=== PATIENT | female | born 1980 | race Caucasian/White ===

== ENCOUNTER 2016-07-05 01:01 | Inpatient (IN) | payer MEDICARE, OTHER ==
--- NOTE | ~2016-07-05 | A ---
[facility] Nutrition Therapy DATE: 07/06/16 Patient: AMARI S MASOOD Physician: MORCAR Address: [address] [facility] [facility] Room/Bed: [address], Zip: [place] [address] Admit Date: 07/05/16 Date of : [birth year] Height: 5 0 Weight: 144 65.5 NUTRITIONAL ASSESSMENT: REASON: DKA, NPO STATUS IN ICU 36 yo female admitted for n/v, drug screen, FL PMH: DM, HLD Anthropometrics: Ht: 60" Wt: 65 kg BMI: 28 Labs: Na+ 134 Gluc 157 BUN 8 Ca++ 7.6 Alb 2.8 Phos 5.3 HgbA1C 10.7 Accuchecks from 07/05 (none available today): 103-323 Meds: NaCl, novolog, KCl, lipitor, levemir, lopressor, protonix, D50% I/O & Bowel function: 804/600, last BM unknown Skin Integrity: Small scabs- scattered Scars BL arms/ abdomen/ left thigh Edema: none noted Assessment: Chart reviewed, events noted. Pt admitted for n/v, DKA, positive for FL. Pt has a h/o DM and HLD, and has had DM diet education from [facility] R[facility] in the past (August [address] notes). Insulin drip has been turned off, and the pt is NPO for cath procedure. Pt has orders to advance to a heart healthy/ consistent carbohydrate diet after procedure. Pt has elevated Phos ATT, and had elevated K+ upon admission. Pt is very lethargic today per RN report, and not appropriate for diet education. RD will follow up for diet education needs and to assess PO intake once diet advances. Dx: Impaired glycemic control RT PMH, possibly poorly controlled DM AEB accuchecks 103-323. Intervention: 1. NPO 2. Advance to HH/CC diet once medically feasible Monitoring, Evaluation and Goals: 1. Oral intake; tolerate >50-75% of meals and supplements 2. Labs; WNL 3. Weight; prevent unintentional weight loss Recommendations: [facility] Nutrition Therapy DATE: 07/06/16 Patient: AMARI CORREIA Physician: MORCAR Address: [address] [facility] Room/Bed: [facility] [facility], Zip: [place] [address] Admit Date: 07/05/16 Date of : [birth year] Height: 5 0 Weight: 144 65.5 1. Once medically feasible, advance the pt to a heart healthy/ consistent carbohydrate diet as tolerated. 2. HH/CD diet education once appropriate. RD will follow up. Pt is at mild-moderate nutritional risk. Respectfully, SAWYER QUINN RD, LD Food and Nutritional Services [facility] cc: client file
--- NOTE | ~2016-07-05 | EKG ---
PATIENT: AMARI CORREIA UNIT #: [id number] Ventricular Rate: 117 BPM Atrial Rate: 117 BPM P-R Interval: 116 ms QRS Duration: 84 ms Q-T Interval: 342 ms QTC Calculation(Bezet): 477 ms P [place]: 71 degrees Calculated R [place]: 79 degrees Calculated T [place]: 44 degrees Diagnosis Line: Sinus tachycardia Diagnosis Line: Otherwise normal ECG Diagnosis Line: When compared with ECG of 05-JUL-2016 03:30, Diagnosis Line: (unconfirmed) Diagnosis Line: ST no longer depressed in Inferior leads Diagnosis Line: Confirmed by HONEY LAINEZ MD ([id number]) on Diagnosis Line: 07/05/2016 12:10:31 PM INTERPRETING MD: JOSIAH
--- NOTE | ~2016-07-05 | HP ---
Unit #: [id number] #: [id number] Patient: AMARI CORREIA [id number] [address] [place], [place] [address] [id number] E MR#: [id number] NAME: AMARI CORREIA ROOM: Age: 36 Sex: F Admission Date: 07/05/2016 : 1980 Attending Physician: [facility] Er Primary Care Physician: Jose Carlos Juarez M.D. HISTORY AND PHYSICAL CHIEF COMPLAINT Feeling bad. HISTORY OF PRESENT ILLNESS The patient is a 36-year-old female with diabetes who presents to [facility] emergency department feeling bad. Per the patient and family, she began feeling ill with a "stomach virus" about two days ago. She has been progressively more ill since that time. She has extreme nausea and vomiting, fatigue, weakness and shortness of breath. No alleviating factors at this time. PAST MEDICAL HISTORY 1. Diabetes. 2. Hyperlipidemia. PAST SURGICAL HISTORY None. SOCIAL HISTORY The patient smokes. Denies alcohol and illicit drug use. FAMILY HISTORY Diabetes. ALLERGIES Dilantin. HOME MEDICATIONS 1. Nystatin. 2. Metformin. 3. Januvia. 4. Lantus. 5. NovoLog. REVIEW OF SYSTEMS Ten point review of systems obtained and negative except as per HPI. PHYSICAL EXAMINATION VITAL SIGNS: Temperature 98.2, pulse 116, blood pressure 121/60. GENERAL: 36-year-old female in no acute distress, who appears stated age. HEENT: Pupils equally round. Extraocular movements intact. Mucous membranes dry. NECK: Supple. No JVD, no lymphadenopathy. CARDIAC: Regular rate and rhythm. No murmurs, gallops or rubs. Unit #: [id number] #: [id number] Patient: AMARI CORREIA LUNGS: Clear to auscultation bilaterally. ABDOMEN: Diffusely tender to palpation. Soft. No hepatosplenomegaly. EXTREMITIES: No clubbing, cyanosis or edema. They are warm and dry. PSYCH: Alert and oriented x3. Affect is appropriate. NEUROLOGICAL: Cranial nerves II-XII intact grossly. The patient moves all extremities equally and with purpose. SKIN: No rashes, bruises or ulcers. MUSCULOSKELETAL: No muscle or joint pain, no muscle or joint swelling. DIAGNOSTIC STUDIES LABORATORY: Glucose 535, creatinine 1.5, sodium 130, potassium 5.3, bicarb 6, white count 15. IMAGING: Chest x-ray is negative. ASSESSMENT AND PLAN 1. Diabetic ketoacidosis: The patient's bicarb is 6 with a gap of 28. The patient was started on insulin drip. 2. Hyperkalemia: This is secondary to patient's acidosis and the patient is likely potassium depleted and will require potassium replacement once acidosis has resolved. 3. Prophylaxis: The patient was started on Lovenox. Dictated by Obed Woods M.D. JOEY/remedios TD: 07/05/2016 06:41 JOB #: [id number] HISTORY AND PHYSICAL X Obed Woods MD X HISTORY AND PHYSICAL
--- NOTE | ~2016-07-05 | EKG ---
PATIENT: AMARI CORREIA UNIT #: [id number] Ventricular Rate: 88 BPM Atrial Rate: 88 BPM P-R Interval: 120 ms QRS Duration: 80 ms Q-T Interval: 402 ms QTC Calculation(Bezet): 486 ms P [place]: 63 degrees Calculated R [place]: 73 degrees Calculated T [place]: 15 degrees Diagnosis Line: Normal sinus rhythm Diagnosis Line: Prolonged QT Diagnosis Line: Abnormal ECG Diagnosis Line: When compared with ECG of 05-JUL-2016 16:45, Diagnosis Line: (unconfirmed) Diagnosis Line: No significant change was found Diagnosis Line: Confirmed by KAILASH CORTEZ MD ([id number]) on 07/06/2016 Diagnosis Line: 7:38:10 PM INTERPRETING MD: DANA CORONA
--- NOTE | ~2016-07-05 | EKG ---
PATIENT: AMARI CORREIA UNIT #: [id number] Ventricular Rate: 90 BPM Atrial Rate: 90 BPM P-R Interval: 118 ms QRS Duration: 80 ms Q-T Interval: 382 ms QTC Calculation(Bezet): 467 ms P [place]: 49 degrees Calculated R [place]: 69 degrees Calculated T [place]: -7 degrees Diagnosis Line: Normal sinus rhythm Diagnosis Line: Abnormal QRS-T angle, consider primary T wave Diagnosis Line: abnormality Diagnosis Line: Abnormal ECG Diagnosis Line: When compared with ECG of 06-JUL-2016 06:00, Diagnosis Line: (unconfirmed) Diagnosis Line: Nonspecific T wave abnormality now evident in Diagnosis Line: Lateral leads Diagnosis Line: Confirmed by KAILASH CORTEZ MD ([id number]) on 07/06/2016 Diagnosis Line: 7:42:01 PM INTERPRETING MD: DANA CORONA
--- NOTE | ~2016-07-05 | DS ---
Unit #: [id number] #: [id number] Patient: AMARI CORREIA [id number] [address] [place], [place] [address] [id number] I MR#: [id number] NAME: AMARI CORREIA. ROOM: 568 Age: 36 Sex: F Admission Date: 07/05/2016 : 1980 Discharge Date: 07/07/2016 Attending Physician: Gaurang De La Cruz M.D. Primary Care Physician: Jose Carlos Juarez M.D. DISCHARGE SUMMARY ADMITTING DIAGNOSES 1. Diabetic ketoacidosis. 2. Non-ST elevation myocardial infarction. CONSULTANTS Dr. Hanks/Dr. Mel Trevizo. Dr. Marion. PROCEDURES PERFORMED Cardiac catheterization, status post stent placement. She was noted to have left ventricular inferior basal hypokinesia. Left main normal. LAD 50% mid. Left circumflex 95%. Proximal RCA 100%. She had a [employer] stent of the proximal left circumflex. HISTORY OF PRESENT ILLNESS The patient is a 36-year-old lady with a past medical history of type 1 diabetes, noncompliant. She presented to the emergency room with a chief complaint of nausea and vomiting and not feeling well. Initially in the emergency room she was noted to be in diabetic ketoacidosis and she was started on DKA protocol. On further workup her troponin was elevated high, up to 8. For further workup cardiology was consulted. She had a cardiac catheterization done and subsequently she had a stent placed. She is doing clinically better after the cardiac catheterization an stent. Dr. Marion was consulted for the ICU management. She is clinically doing better. She will be discharged home. I spoke with the patient at length and explained to her that she is to consider quitting smoking and take her medications regularly. She is to follow up with cardiology as an outpatient for further care. PHYSICAL EXAMINATION VITALS: On the day of discharge her temperature is 97.8, pulse rate 88, respiratory rate 18, blood pressure 119/67. GENERAL: The patient is alert and oriented times three, lying in the bed in no acute distress. HEENT: Normocephalic, atraumatic. No icterus. Pupils equally round and reactive to light and accommodation. Extraocular muscles intact. NECK: Supple. No jugular venous distension. HEART: S1 and S2. Regular rate and rhythm. CHEST: Bilateral equal air entry. Clear to auscultation. ABDOMEN: Soft and nontender. EXTREMITIES: No edema. Normal peripheral pulses. DISCHARGE MEDICATIONS 1. Zithromax 250 mg p.o. daily for 3 more days. Unit #: [id number] #: [id number] Patient: AMARI CORREIA 2. Nitroglycerin 0.4 mg sublingual q. 5 minutes times 3 p.r.n. chest. 3. Januvia 100 mg p.o. daily. 4. Metoprolol 25 mg p.o. b.i.d. 5. Lipitor 80 mg daily. 6. Lisinopril 2.5 mg p.o. daily. 7. Insulin Aspart 15 units subcutaneous t.i.d. before meals. 8. Aspirin 81 mg daily. 9. Brilinta 90 mg p.o. b.i.d. 10. Protonix 40 mg daily. 11. Ofloxacin eyedrops b.i.d. FOLLOWUP 1. She is instructed to follow up with cardiology. 2. Follow up with primary care physician in one to two weeks. All the discharge instructions were explained in detail to the patient. 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 Total time spent in her care was 35 minutes. Dictated by.Tamie Lynch TD: 07/07/2016 16:00 JOB #: [id number] DISCHARGE SUMMARY X X DISCHARGE SUMMARY
--- NOTE | ~2016-07-05 | CR72 ---
[facility] A Service of [facility] & [facility] RADIOLOGY TEXT RESULTS PATIENT: AMARI CORREIA LOCATION: [facility] 568- : [birth year] UNIT #: [id number] AGE: [address]: Gaurang De La Cruz MD SEX: F ORDER DR: [id number] [facility] [address] [place], [place] [address] [id number] I MR#: [id number] Acc #: [id number] NAME: AMARI CORREIA : 1980 SEX: F STUDY DATE/TIME: 07/06/2016 2:45 UNIT: [facility] ROOM: [facility] STUDY DESCRIPTION: CR Chest Single View Portable Attending Physician: Gaurang De La Cruz M.D. Ordering Physician: Verenice Marion M.D. Primary Care Physician: Jose Carlos Juarez M.D. MEDICAL IMAGING REPORT This report is preliminary unless electronic signature is present EXAM Portable AP view of the chest COMPARISON July 05, 2016 and August 06, 2014. INDICATION 36-year-old female with nausea, emesis, weakness and dyspnea for 1 day. Admitted with diabetic ketoacidosis. FINDINGS AND IMPRESSION No evidence of pneumothorax, pleural effusion or acute airspace disease. Calcified hilar lymph nodes are noted on the right with calcified granulomas in the right pulmonary apex. There has been interval placement of a right upper extremity PICC with the tip terminating in the right axillary vein. This is malpositioned. Dictated by... Jose Carlos Arteaga M.D. THIS IS AN ELECTRONICALLY VERIFIED REPORT Jose Carlos Arteaga M.D. at 07/08/2016 6:53 AM Ana M TD: 07/06/2016 09:37 JOB #: [id number] MEDICAL IMAGING REPORT COPY
--- NOTE | ~2016-07-05 | EKG ---
PATIENT: AMARI CORREIA UNIT #: [id number] Ventricular Rate: 88 BPM Atrial Rate: 88 BPM P-R Interval: 122 ms QRS Duration: 82 ms Q-T Interval: 384 ms QTC Calculation(Bezet): 464 ms P [place]: 50 degrees Calculated R [place]: 92 degrees Calculated T [place]: -24 degrees Diagnosis Line: Normal sinus rhythm Diagnosis Line: Rightward axis Diagnosis Line: T wave abnormality, consider inferior ischemia Diagnosis Line: Prolonged QT Diagnosis Line: Abnormal ECG Diagnosis Line: When compared with ECG of 06-JUL-2016 17:45, Diagnosis Line: No significant change was found Diagnosis Line: Confirmed by KAILASH CORTEZ MD ([id number]) on 07/09/2016 Diagnosis Line: 5:48:25 PM INTERPRETING MD: DANA CORONA
--- NOTE | ~2016-07-05 | CR72 ---
[facility] A Service of [facility] & [facility] RADIOLOGY TEXT RESULTS PATIENT: AMARI CORREIA LOCATION: [address] : [birth year] UNIT #: [id number] AGE: [address]: Gaurang De La Cruz MD SEX: F ORDER DR: [id number] [facility] [address] [facility] [address] [address] [place], [place] [address] [id number] E MR#: [id number] #: [id number] NAME: AMARI CORREIA : 1980 SEX: F STUDY DATE/TIME: 07/05/2016 0:53 UNIT: [facility] ROOM: STUDY DESCRIPTION: CR Chest Single View Portable Attending Physician: Er Doctor Generic Ordering Physician: Michael Sanford M.D. Primary Care Physician: Jose Carlos Juarez M.D. MEDICAL IMAGING REPORT This report is preliminary unless electronic signature is present EXAM Portable AP view of the chest COMPARISON August 06, 2014, August 03, 2014, July 31, 2014. INDICTIONS 36-year-old female with cough and dyspnea for 2 days. FINDINGS Calcified right hilar lymph nodes are again noted. No evidence of pneumothorax, pleural effusion or acute airspace disease. Cardiomediastinal silhouette is within normal limits. There is a note of calcified clustered granulomas in the right pulmonary apex. IMPRESSION No acute radiographic abnormality. Dictated by... Jose Carlos Arteaga M.D. THIS IS AN ELECTRONICALLY VERIFIED REPORT Jose Carlos Arteaga M.D. at 07/06/2016 8:24 AM Charlene TD: 07/05/2016 07:36 JOB #: [id number] MEDICAL IMAGING REPORT COPY
--- NOTE | ~2016-07-05 | EKG ---
PATIENT: AMARI CORREIA UNIT #: [id number] Ventricular Rate: 124 BPM Atrial Rate: 124 BPM P-R Interval: 134 ms QRS Duration: 100 ms Q-T Interval: 326 ms QTC Calculation(Bezet): 468 ms P [place]: 62 degrees Calculated R [place]: 94 degrees Calculated T [place]: 18 degrees Diagnosis Line: Sinus tachycardia Diagnosis Line: Possible Left atrial enlargement Diagnosis Line: Rightward axis Diagnosis Line: Nonspecific ST abnormality Diagnosis Line: Abnormal ECG Diagnosis Line: When compared with ECG of 06-AUG-2014 18:40, Diagnosis Line: QRS duration has increased Diagnosis Line: ST now depressed in Inferior leads Diagnosis Line: ST now depressed in Anterolateral leads Diagnosis Line: Confirmed by HONEY LAINEZ MD ([id number]) on Diagnosis Line: 07/05/2016 12:01:51 PM INTERPRETING MD: JOSIAH
--- NOTE | ~2016-07-05 | EKG ---
PATIENT: AMARI CORREIA UNIT #: [id number] Ventricular Rate: 84 BPM Atrial Rate: 84 BPM P-R Interval: 118 ms QRS Duration: 76 ms Q-T Interval: 400 ms QTC Calculation(Bezet): 472 ms P [place]: 9 degrees Calculated R [place]: 69 degrees Calculated T [place]: 28 degrees Diagnosis Line: Normal sinus rhythm Diagnosis Line: Normal ECG Diagnosis Line: When compared with ECG of 05-JUL-2016 09:10, Diagnosis Line: No significant change was found Diagnosis Line: Confirmed by KAILASH CORTEZ MD ([id number]) on 07/06/2016 Diagnosis Line: 7:29:55 PM INTERPRETING MD: DANA CORONA
--- NOTE | ~2016-07-05 | CO ---
Unit #: [id number] #: [id number] Patient: AMARI CORREIA [id number] [address] [place], [place] [address] [id number] MR#: [id number] NAME: AMARI CORREIA. ROOM: [facility] Age: 36 Sex: F Admission Date: 07/05/2016 : 1980 Attending Physician: Gaurang De La Cruz M.D. Primary Care Physician: Jose Carlos Juarez M.D. Consultation Date: 07/05/2016 CONSULTATION REPORT REASON FOR CONSULT Elevated troponin. 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 The patient presented to the [place] ED on 07/04/16 at 10 p.m. with complaints of nausea, vomiting, elevated blood sugar that was measured at 440 at home. The patient's boyfriend is at the bedside and provides most of the history as the patient is very sleepy and does not wake long enough to have discussion regarding her admission. Boyfriend states that the patient slept most of the day yesterday and around 8 or 9 p.m. she began vomiting. Therefore, he called EMS to bring the patient to the hospital after he noted her blood sugar to be 460. The patient was given fluid bolus in the ER and was initiated on DKA protocol. At the time of our assessment, the patient's blood pressure is better controlled at 195. The patient had an elevated troponin this morning of 8.61. The patient states that she is having some chest pressure to the middle of her chest and does not radiate anywhere and she has been having some shortness of breath in the last couple of days. She denies any palpitations, syncope or near syncope. The patient has not had any kind of cardiac workup for ischemic heart disease. PAST MEDICAL HISTORY 1. Diabetes. 2. Hyperlipidemia. 3. Tobacco abuse. SURGICAL HISTORY 1. Shunt in the head. 2. MRSA of the left leg. 3. D and C. 4. Tubal. SOCIAL HISTORY The patient smokes a pack per day for the last 20 years. She denies any alcohol abuse or any other drug abuse. FAMILY HISTORY She had a sister that at age 29 from an infection of her heart. REVIEW OF SYSTEMS Unit #: [id number] #: [id number] Patient: AMARI CORREIA See HPI. PHYSICAL EXAMINATION GENERAL: This is a 36-year-old white female who is alert and oriented x3, no apparent distress. VITAL SIGNS: Blood pressure 123/85, respirations 16, pulse was 127, temp is 98.0. HEENT: Pupils are equal, round and reactive. Oral mucosa is moist. NECK: No JVD, no thyromegaly, no lymphadenopathy, no carotid bruits. HEART: S1, S2. No S3 or S4. No clicks, no rubs, no murmurs. LUNGS: Clear. ABDOMEN: Soft. Bowel sounds positive. Nontender, nondistended. EXTREMITIES: No swelling. ALLERGIES Dilantin. HOME MEDICATIONS 1. Cholesterol medicine. 2. Metformin. 3. Januvia. 4. Lantus. 5. NovoLog. None of the doses are listed and the home Med Rec is not available at this time for review. DIAGNOSTIC STUDIES LABORATORY: White count of 15.7, hemoglobin 14.4, hematocrit 45.1, platelets 316, sodium 136, potassium 4.5, chloride 110, CO2 6, BUN 18, creatinine 1.3, glucose 195, phos 5.3, troponin 8.6, CK MB 15.4. CARDIOVASCULAR: EKG shows sinus tachycardia with a rate of 117. IMAGING: Chest x-ray was clear with no signs of pulmonary edema or pneumonia noted. IMPRESSION 1. Diabetic ketoacidosis. 2. Acute non-Q myocardial infarction. 3. Hyperlipidemia. 4. Tobacco abuse. PLAN The patient was started on aspirin, therapeutic Lovenox. Will add a lipid profile and A1c to this morning's lab as well as full dose of Lipitor. Will put parameters on Lopressor that was ordered. Will trend troponins q.6 hours x3. Will check an EKG now as well as start Integrilin drip on the patient. Discussed with patient that she needs to have a cardiac cath; however, patient is reluctant to have one today and she requests to have it done tomorrow. Will check labs in the morning as well as an EKG and a troponin level. Will plan for patient to have cardiac cath tomorrow. Patient is agreeable to proceed and verbalizes understanding of the plan and care. Dictated by... Erin Melchor APRN for Unit #: [id number] #: [id number] Patient: AMARI CORREIA M.D. LA/df TD: 07/06/2016 08:28 JOB #: [id number] CONSULTATION REPORT X X CONSULTATION REPORT
[~2016-07-05 01:01] MED LIST: ANEXSIA 7.5/3251 TA1 PO; BACTRIM DS TABL1 TA1 PO; COMBIVENT U/D3 M2 INH; DAKIN'S MODIF1000 ML EXT; HIGH CHOLESTEROL MED; HUMALOG100 U/M1; HUMALOG100 U/ML; HUMALOG100 U/ML SUBQ; HUMIBID-LA600 MG PO; IBUPROFEN800 MG PO; KEFLEX PO; LANTUS100 U/M1 SUBQ; LANTUS100 U/ML; LANTUS100 UNITS/ SUBQ; LEVAQUIN750 MG PO; LEVEMIR100 UNITS/ SUBQ; MOTRIN400 MG PO; MOTRIN600 M2 PO; NICOTINE TRANSD21 MG EXT; PEPCID AC20 M2 PO; PERCOCET 5-3251 TAB PO; PROZAC PO; RAMIPRIL2.5 M1 PO; SIMVASTATIN20 MG PO; VIBRAMYCIN100 M1 PO; WELLBUTRIN XL150 M1 PO
[2016-07-05 01:56] LABS: BASOPHIL# 0.1 X10e3 (0-0.3); BASOPHIL% 0.3 % (0-2.5); EOSINOPHIL% 0.3 % (0.0-7.0); HEMATOCRIT 45.1 % (35.0-45.0); HEMOGLOBIN 14.2 gm/dL (12.0-16.0); LYMPHOCYTE# 1.7 X10e3 (1.0-3.5); LYMPHOCYTE% 10.7 % (17.0-45.0); MEAN CELL VOLUME 91.2 FL (83-96); MEAN CORPUSCULAR HEMOGLOBIN 28.8 PG (28-34); MEAN CORPUSCULAR HGB CONC 31.5 g/dL (30-36); MEAN PLATELET VOLUME 9.3 FL (6.5-11.5); MONOCYTE% 6.7 % (3.0-12.0); NEUTROPHIL# 12.8 X10e3 (1.5-7.1); PLATELET COUNT 316 X10e3 (140-420); RED BLOOD COUNT 4.94 X10e (3.90-5.30); RED CELL DISTRIBUTION WIDTH 13.2 % (11.0-15.5); WHITE BLOOD COUNT 15.7 X10e3 (4.0-10.5)
[2016-07-05 02:00] LABS: DIFF IND YES
[2016-07-05 02:24] LABS: PLATELET ESTIMATE NORMAL (NORMAL)
[2016-07-05 02:30] LABS: BILIRUBIN, DIRECT 0.2 mg/dL (0.0-0.2); BILIRUBIN,INDIRECT 1.4 mg/dL (0.0-0.9); BILIRUBIN,TOTAL 1.6 mg/dL (0.2-2.0); BUN/CREATININE RATIO 14.66; CALCIUM SERUM 9.3 mg/dL (8.4-10.2); CREATININE SERUM 1.5 mg/dL (0.6-1.4); GLOM FILT RATE Estimated 41.8 mL/min (>60); POTASSIUM 5.3 mmol/L (3.5-5.1); PROTEIN TOTAL SERUM 7.7 g/dL (6.0-8.3)
[2016-07-05 03:25] LABS: URINE SOURCE CLEAN CATCH
[2016-07-05 03:26] LABS: ARTERIAL BLD GAS O2 SATURATION 96.1 % (90.0-100.0); ARTERIAL BLOOD GAS CARBOXY HB 0.7 %sat (0.0-9.0)
[2016-07-05 03:28] LABS: ARTERIAL BLOOD GAS ALLEN TEST NORMAL; ARTERIAL BLOOD GAS ART SITE RIGHT RADIAL; ARTERIAL BLOOD GAS DELIVERY ROOM AIR; ARTERIAL BLOOD GAS PCO2 11.9 mmHg (35.0-45.0); ARTERIAL BLOOD GAS pH 7.009 (7.350-7.450); ARTERIAL DRAW? YES
[2016-07-05 03:41] LABS: URINE APPEARANCE CLEAR; URINE BILIRUBIN NEG (NEG); URINE BLOOD 2+ (NEG); URINE COLOR YELLOW; URINE GLUCOSE >1000 MG/DL (NEG); URINE KETONE 3+ (NEG); URINE LEUKOCYTE ESTERASE NEG (NEG); URINE NITRATE NEG (NEG); URINE PROTEIN 1+ (NEG); URINE SPECIFIC GRAVITY 1.026 (1.003-1.035); URINE UROBILINOGEN 0.2 MG/DL (NEG)
[2016-07-05 03:45] LABS: URBCS1 AUWI 0-2 /[HPF] (0-2); URINE BACTERIA AUWI NEG (NEGATIVE); URINE SQUAMOUS EPITHELIAL CELL OCC /[HPF]; UWBCS1 AUWI 0-2 (0-5)
[2016-07-05 03:51] LABS: CULTURE INDICATED? NO
[2016-07-05 05:19] LABS: BETA HYDROXYBUTYRATE 11.7 MMOL/L (0.02-0.27)
[2016-07-05 07:38] LABS: POC - CKMB 15.4 ng/mL (0.0-7.9); POC - TROPONIN 8.61 ng/mL (<=0.05)
[2016-07-05 08:09] LABS: BUN/CREATININE RATIO 13.84; CALCIUM SERUM 7.6 mg/dL (8.4-10.2); CREATININE SERUM 1.3 mg/dL (0.6-1.4); GLOM FILT RATE Estimated 49.3 mL/min (>60); POTASSIUM 4.5 mmol/L (3.5-5.1)
[2016-07-05 09:43] LABS: HEMATOCRIT 38.8 % (35.0-45.0); HEMOGLOBIN 12.9 gm/dL (12.0-16.0); MEAN CORPUSCULAR HEMOGLOBIN 29.3 PG (28-34); MEAN CORPUSCULAR HGB CONC 33.4 g/dL (30-36); MEAN PLATELET VOLUME 7.7 FL (6.5-11.5); RED BLOOD COUNT 4.42 X10e (3.90-5.30); WHITE BLOOD COUNT 12.9 X10e3 (4.0-10.5)
[2016-07-05 09:51] LABS: MEAN CELL VOLUME 87.8 FL (83-96)
[2016-07-05] MEDS ORDERED: JANUVIA PO (10:16)
[2016-07-05] MEDS ORDERED: GABAPENTIN400 MG PO (10:17)
[2016-07-05] MEDS ORDERED: TOUJEO SOL300 UNIT/1 SUBQ (10:17)
[2016-07-05] MEDS ORDERED: PRAVASTATIN SOD40 MG PO (10:17)
[2016-07-05] MEDS ORDERED: NOVOLOG FL100 UNIT/1 SUBQ (10:17)
[2016-07-05 10:33] LABS: ALBUMIN SERUM 3.1 g/dL (3.5-5.0); BILIRUBIN,TOTAL 1.2 mg/dL (0.2-2.0); BUN/CREATININE RATIO 14.16; CALCIUM SERUM 7.8 mg/dL (8.4-10.2); CREATININE SERUM 1.2 mg/dL (0.6-1.4); POTASSIUM 4.6 mmol/L (3.5-5.1); PROTEIN TOTAL SERUM 6.1 g/dL (6.0-8.3)
[2016-07-05 11:46] LABS: BUN/CREATININE RATIO 14.54; CALCIUM SERUM 7.6 mg/dL (8.4-10.2); CREATININE SERUM 1.1 mg/dL (0.6-1.4); GLOM FILT RATE Estimated 59.7 mL/min (>60); POTASSIUM 4.1 mmol/L (3.5-5.1)
[2016-07-05 12:26] LABS: INFLUENZA A NEG (NEG); INFLUENZA B NEG (NEG)
[2016-07-05 17:38] LABS: BUN/CREATININE RATIO 12.72; CALCIUM SERUM 7.6 mg/dL (8.4-10.2); CREATININE SERUM 1.1 mg/dL (0.6-1.4); GLOM FILT RATE Estimated 59.7 mL/min (>60); POTASSIUM 3.9 mmol/L (3.5-5.1)
[2016-07-05 17:50] LABS: BASOPHIL% 0.2 % (0-2.5); DIFF IND NO; EOSINOPHIL% 0.2 % (0.0-7.0); HEMATOCRIT 36.7 % (35.0-45.0); HEMOGLOBIN 12.3 gm/dL (12.0-16.0); LYMPHOCYTE# 2.2 X10e3 (1.0-3.5); LYMPHOCYTE% 18.1 % (17.0-45.0); MEAN CELL VOLUME 86.8 FL (83-96); MEAN CORPUSCULAR HGB CONC 33.4 g/dL (30-36); MEAN PLATELET VOLUME 7.8 FL (6.5-11.5); MONOCYTE# 1.4 X10e3 (0-1.0); MONOCYTE% 11.8 % (3.0-12.0); NEUTROPHIL# 8.5 X10e3 (1.5-7.1); NEUTROPHIL% 69.7 % (40-75); PLATELET COUNT 232 X10e3 (140-420); RED BLOOD COUNT 4.23 X10e (3.90-5.30); RED CELL DISTRIBUTION WIDTH 12.9 % (11.0-15.5); WHITE BLOOD COUNT 12.1 X10e3 (4.0-10.5)
[2016-07-05 23:13] LABS: AMPHETAMINE POS (NEG); BARBITURATES NEG (NEG); BENZODIAZEPINES NEG (NEG); COCAINE NEG (NEG); MARIJUANA NEG (NEG); OPIATES NEG (NEG); TRICYCLIC ANTIDEPRESSANTS NEG (NEG); U METHADONE NEG (NEG)
[2016-07-05 23:50] LABS: BUN/CREATININE RATIO 9.16; CALCIUM SERUM 7.5 mg/dL (8.4-10.2); CREATININE SERUM 1.2 mg/dL (0.6-1.4); POTASSIUM 3.9 mmol/L (3.5-5.1)
[2016-07-06 04:33] LABS: BASOPHIL% 0.2 % (0-2.5); EOSINOPHIL% 0.1 % (0.0-7.0); HEMATOCRIT 35.3 % (35.0-45.0); LYMPHOCYTE# 2.3 X10e3 (1.0-3.5); MEAN CELL VOLUME 87.9 FL (83-96); MEAN CORPUSCULAR HEMOGLOBIN 29.9 PG (28-34); MEAN PLATELET VOLUME 7.7 FL (6.5-11.5); MONOCYTE# 1.1 X10e3 (0-1.0); NEUTROPHIL# 7.4 X10e3 (1.5-7.1); NEUTROPHIL% 68.7 % (40-75); PLATELET COUNT 200 X10e3 (140-420); RED BLOOD COUNT 4.02 X10e (3.90-5.30); RED CELL DISTRIBUTION WIDTH 12.9 % (11.0-15.5); WHITE BLOOD COUNT 10.7 X10e3 (4.0-10.5)
[2016-07-06 04:34] LABS: DIFF IND NO
[2016-07-06 04:57] LABS: ALBUMIN SERUM 2.8 g/dL (3.5-5.0); ALKALINE PHOSPHATASE 73 U/L (32-92); ALT (SGPT) 14 U/L (10-40); AST (SGOT) 40 U/L (10-42); BLOOD UREA NITROGEN 8 mg/dL (9-23); CALCIUM SERUM 7.6 mg/dL (8.4-10.2); CARBON DIOXIDE 15 mmol/L (22-31); CHLORIDE 108 mmol/L (100-111); CREATININE SERUM 0.8 mg/dL (0.6-1.4); GLOM FILT RATE Estimated ABOVE60 mL/min (>60); GLUCOSE FASTING 157 mg/dL (70-110); MAGNESIUM 1.7 mg/dL (1.6-3.0); POTASSIUM 3.5 mmol/L (3.5-5.1); PROTEIN TOTAL SERUM 5.6 g/dL (6.0-8.3); SODIUM 134 mmol/L (135-145)
[2016-07-06 05:01] LABS: PARTIAL THROMBOPLASTIN TIME 29.9 SECONDS (23.5-31.3); PROTHROMBIN TIME (PATIENT) 10.2 SECONDS (9.6-11.5)
[2016-07-06 06:26] LABS: MB 32.2 ng/ml
[2016-07-06 12:39] LABS: BLOOD UREA NITROGEN 5 mg/dL (9-23); BUN/CREATININE RATIO 7.14; CALCIUM SERUM 7.2 mg/dL (8.4-10.2); CARBON DIOXIDE 19 mmol/L (22-31); CHLORIDE 113 mmol/L (100-111); CREATININE SERUM 0.7 mg/dL (0.6-1.4); GLOM FILT RATE Estimated ABOVE60 mL/min (>60); GLUCOSE FASTING 200 mg/dL (70-110); POTASSIUM 3.4 mmol/L (3.5-5.1); SODIUM 134 mmol/L (135-145)
[2016-07-06 14:35] LABS: LEGIONELLA AG URINE NEG (NEG)
[2016-07-07 00:24] LABS: ANGIO %MB 6.7 % (0.0-4.0); ANGIO MB 8.3 ng/ml
[2016-07-07 07:25] LABS: BASOPHIL% 0.4 % (0-2.5); EOSINOPHIL# 0.1 X10e3 (0-0.7); EOSINOPHIL% 1.6 % (0.0-7.0); HEMATOCRIT 34.1 % (35.0-45.0); HEMOGLOBIN 11.7 gm/dL (12.0-16.0); LYMPHOCYTE# 1.4 X10e3 (1.0-3.5); LYMPHOCYTE% 23.8 % (17.0-45.0); MEAN CELL VOLUME 86.1 FL (83-96); MEAN CORPUSCULAR HEMOGLOBIN 29.6 PG (28-34); MEAN CORPUSCULAR HGB CONC 34.4 g/dL (30-36); MONOCYTE# 0.6 X10e3 (0-1.0); MONOCYTE% 9.8 % (3.0-12.0); NEUTROPHIL# 3.9 X10e3 (1.5-7.1); NEUTROPHIL% 64.4 % (40-75); PLATELET COUNT 183 X10e3 (140-420); RED BLOOD COUNT 3.96 X10e (3.90-5.30); RED CELL DISTRIBUTION WIDTH 12.6 % (11.0-15.5)
[2016-07-07 07:29] LABS: DIFF IND NO
[2016-07-07 07:57] LABS: BLOOD UREA NITROGEN 6 mg/dL (9-23); CARBON DIOXIDE 25 mmol/L (22-31); CHLORIDE 108 mmol/L (100-111); CREATININE SERUM 0.8 mg/dL (0.6-1.4); GLOM FILT RATE Estimated ABOVE60 mL/min (>60); GLUCOSE FASTING 194 mg/dL (70-110); POTASSIUM 3.4 mmol/L (3.5-5.1); SODIUM 139 mmol/L (135-145)
[2016-07-07 08:08] LABS: CHOLESTEROL 114 mg/dL (0-200); HDL CHOLESTEROL 31 mg/dL (35-95); LDL CHOLESTEROL 62 mg/dL (-130); LDL/HDL RATIO 2 RATIO (0-4); TRIGLYCERIDES 105 mg/dL (10-160)
[2016-07-07 08:14] LABS: ANGIO %MB 5.5 % (0.0-4.0); ANGIO MB 5.9 ng/ml
[2016-07-07] MEDS ORDERED: BAYER CHEWABLE81 MG PO (15:02)
[2016-07-07] MEDS ORDERED: AZITHROMYCIN250 MG PO (15:02)
[2016-07-07] MEDS ORDERED: PROTONIX PO (15:03)
[2016-07-07] MEDS ORDERED: BRILINTA90 MG PO (15:03)
[2016-07-07] MEDS ORDERED: OFLOXACIN5 M1 AU (15:04)
[2016-07-07] MEDS ORDERED: LIPITOR80 MG PO (15:05)
[2016-07-07] MEDS ORDERED: METOPROLOL TAR25 MG PO (15:05)
[2016-07-07] MEDS ORDERED: ZESTRIL10 M1 PO (15:06)
[2016-07-07] MEDS ORDERED: NITROGLYGERIN0.4 MG SL (15:07)
[2016-07-07] MEDS ORDERED: K-DUR20 ME2 PO (15:09)
[2016-07-07] MEDS ORDERED: XOPENEX45 MCG/15 INH (15:37)
== END 2016-07-07 16:40 | disposition home or self-care (01) | DRG 246 ==
LOC: CED 01:01 → CEDOF 04:04 → CICCU3 23:08 → C5C 07-06 20:54
PROVIDERS: Emergency Medicine; Internal Medicine; Internal Medicine Cardiovascular Disease; Internal Medicine Pulmonary Disease
PROC: B24BYZZ Ultrasonography of Heart with Aorta using Other Contrast (ICD-10-PCS; 2016-07-05)
PROC: 05H533Z Insertion of Infusion Device into Right Subclavian Vein, Percutaneous Approach (ICD-10-PCS; 2016-07-05)
PROC: 4A023N7 Measurement of Cardiac Sampling and Pressure, Left Heart, Percutaneous Approach (ICD-10-PCS; principal; 2016-07-06)
PROC: 027034Z Dilation of Coronary Artery, One Artery with Drug-eluting Intraluminal Device, Percutaneous Approach (ICD-10-PCS; 2016-07-06)
PROC: B211YZZ Fluoroscopy of Multiple Coronary Arteries using Other Contrast (ICD-10-PCS; 2016-07-06)
PROC: B215YZZ Fluoroscopy of Left Heart using Other Contrast (ICD-10-PCS; 2016-07-06)
DX: I21.4 Non-ST elevation (NSTEMI) myocardial infarction (principal); E10.10 Type 1 diabetes mellitus with ketoacidosis without coma; E87.5 Hyperkalemia; J44.0 Chronic obstructive pulmonary disease with (acute) lower respiratory infection; Z79.4 Long term (current) use of insulin; E78.5 Hyperlipidemia, unspecified; F17.210 Nicotine dependence, cigarettes, uncomplicated; I25.118 Atherosclerotic heart disease of native coronary artery with other forms of angina pectoris; J20.9 Acute bronchitis, unspecified; H92.09 Otalgia, unspecified ear; Z91.14 Patient's other noncompliance with medication regimen; I10 Essential (primary) hypertension
CPT/HCPCS: 36415; 36600; 71010; 80048; 80053; 80061; 80076; 80202; 80307; 81003; 82010; 82150; 82308; 82550; 82553; 82803; 82947; 83036; 83605; 83690; 83735; 84100; 84443; 84484; 84703; 85025; 85027; 85347; 85610; 85730; 87040; 87070; 87205; 87449; 87633; 87804; 87899; 93005; 93306; 96361; 96374; 99291; C1769; C1874; C1887; C1894; C9113; J0456; J0696; J1327; J1644; J1650; J1815; J2250; J2405; J3010; J3370

== ENCOUNTER 2016-12-15 21:56 | Emergency (ER) | payer MEDICARE, OTHER ==
[~2016-12-15] VITALS: Ht 152.4 cm; Wt 62.1 kg
[~2016-12-15 21:56] MED LIST changes: +AZITHROMYCIN250 MG PO; +BAYER CHEWABLE81 MG PO; +BRILINTA90 MG PO; +GABAPENTIN400 MG PO; +JANUVIA PO; +K-DUR20 ME2 PO; +LIPITOR80 MG PO; +METOPROLOL TAR25 MG PO; +NITROGLYGERIN0.4 MG SL; +NOVOLOG FL100 UNIT/1 SUBQ; +OFLOXACIN5 M1 AU; +PRAVASTATIN SOD40 MG PO; +PROTONIX PO; +TOUJEO SOL300 UNIT/1 SUBQ; +XOPENEX45 MCG/15 INH; +ZESTRIL10 M1 PO
[2016-12-15 22:48] LABS: BASOPHIL% 0.7 % (0-2.5); DIFF IND NO; EOSINOPHIL# 0.2 X10e3 (0-0.7); EOSINOPHIL% 2.6 % (0.0-7.0); HEMATOCRIT 41.7 % (35.0-45.0); LYMPHOCYTE# 2.4 X10e3 (1.0-3.5); LYMPHOCYTE% 32.4 % (17.0-45.0); MEAN CELL VOLUME 88.5 FL (83-96); MEAN CORPUSCULAR HEMOGLOBIN 29.7 PG (28-34); MEAN CORPUSCULAR HGB CONC 33.6 g/dL (30-36); MEAN PLATELET VOLUME 8.6 FL (6.5-11.5); MONOCYTE# 0.5 X10e3 (0-1.0); MONOCYTE% 6.8 % (3.0-12.0); NEUTROPHIL# 4.3 X10e3 (1.5-7.1); NEUTROPHIL% 57.5 % (40-75); PLATELET COUNT 225 X10e3 (140-420); RED BLOOD COUNT 4.71 X10e (3.90-5.30); RED CELL DISTRIBUTION WIDTH 13.8 % (11.0-15.5); WHITE BLOOD COUNT 7.5 X10e3 (4.0-10.5)
[2016-12-15 23:08] LABS: BILIRUBIN,TOTAL 0.3 mg/dL (0.2-2.0); BUN/CREATININE RATIO 25.55; CALCIUM SERUM 9.1 mg/dL (8.4-10.2); CREATININE SERUM 0.9 mg/dL (0.6-1.4); GLOM FILT RATE Estimated 82.3 mL/min (>60); PROTEIN TOTAL SERUM 6.8 g/dL (6.0-8.3)
[2016-12-15 23:42] LABS: URINE SOURCE CLEAN CATCH
[2016-12-15 23:45] LABS: URINE APPEARANCE CLEAR; URINE BILIRUBIN NEG (NEG); URINE BLOOD 1+ (NEG); URINE COLOR YELLOW; URINE GLUCOSE 300 MG/DL (NORM); URINE KETONE 1+ (NEG); URINE LEUKOCYTE ESTERASE NEG (NEG); URINE NITRATE NEG (NEG); URINE PH 5.5 (5-8); URINE PROTEIN NEG (NEG); URINE UROBILINOGEN 0.2 MG/DL (NORM)
[2016-12-15 23:46] LABS: MICRO INDICATED? YES
[2016-12-15 23:50] LABS: CULTURE INDICATED? NO; URINE BACTERIA NEG (NEG); URINE SQUAMOUS EPITHELIAL CELL OCCAS /[HPF]; URINE WBC 0-2 /[HPF] (0-5)
[2016-12-15 23:55] LABS: AMPHETAMINE NEG (NEG); BARBITURATES NEG (NEG); BENZODIAZEPINES NEG (NEG); COCAINE NEG (NEG); MARIJUANA NEG (NEG); OPIATES POS (NEG); TRICYCLIC ANTIDEPRESSANTS NEG (NEG); U METHADONE NEG (NEG)
[2016-12-17] MEDS ORDERED: LIPITOR PO (12:02)
[2016-12-17] MEDS ORDERED: BUSPAR15 M1 PO (12:03)
[2016-12-17] MEDS ORDERED: METOPROLOL TAR25 MG PO (12:03)
[2016-12-17] MEDS ORDERED: LISINOPRIL2.5 MG PO (12:03)
[2016-12-17] MEDS ORDERED: BRILINTA90 MG PO (12:03)
[2016-12-17] MEDS ORDERED: JANUVIA PO (12:04)
[2016-12-17] MEDS ORDERED: NOVOLOG100 UNITS/ SUBQ (12:04)
[2016-12-17] MEDS ORDERED: GLUCOPHAGE XR750 MG PO (12:05)
[2016-12-17] MEDS ORDERED: ASPIRIN81 MG PO (15:46)
[2016-12-17] MEDS ORDERED: FLEXERIL10 MG PO (15:47)
[2016-12-17] MEDS ORDERED: HYDROCODON-ACE1 EAC7 PO (15:50)
== END 2016-12-16 00:30 | disposition home or self-care (01) ==
LOC: SED 21:56
DX: M54.2 Cervicalgia (principal); E11.9 Type 2 diabetes mellitus without complications; F17.200 Nicotine dependence, unspecified, uncomplicated; Z88.8 Allergy status to other drugs, medicaments and biological substances; Z79.4 Long term (current) use of insulin; Z79.82 Long term (current) use of aspirin
CPT/HCPCS: 36415; 80053; 80307; 81003; 82947; 84703; 85025; 96361; 96374; 99283; J1815

== ENCOUNTER 2016-12-17 09:00 | Inpatient (IN) | payer MEDICARE, OTHER ==
[~2016-12-17] VITALS: Ht 152.4 cm; Wt 63.0 kg
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
--- NOTE | ~2016-12-17 | CO ---
Unit #: [id number] #: [id number] Patient: AMARI CORREIA [id number] [address] [place], [place] [address] [id number] I MR#: [id number] NAME: AMARI CORREIA ROOM: [facility] Age: 36 Sex: F Admission Date: 12/17/2016 : 1980 Attending Physician: Juan Carlos Garay M.D. Primary Care Physician: Jose Carlos Juarez M.D. Consultation Date: 12/17/2016 CONSULTATION REPORT HISTORY OF PRESENT ILLNESS This is a 36-year-old female with a history of type 1 diabetes mellitus, known to me very well, history of poor compliance, coronary artery disease, history of positive stent placement in the past, who presented to the emergency room for the high blood sugars. She was found to be in a diabetic ketoacidosis. She has been started on IV fluids in the emergency room and insulin drip. I have been asked to see the patient for further management. REVIEW OF SYSTEMS A 12-point review of system was completed, remarkable for some neck pain and some shortness of air. Declines any nausea, vomiting, diarrhea, abdominal pain. No urgency, frequency, or dysuria. PAST MEDICAL HISTORY Type 1 diabetes mellitus, coronary artery disease plus stent placement, hyperlipidemia, and history of poor compliance. PAST SURGICAL HISTORY Stent placement. SOCIAL HISTORY Continues to use tobacco. No alcohol or illicit drugs. FAMILY HISTORY Diabetes mellitus. ALLERGIES Dilantin. HOME MEDICATIONS The patient is on NovoLog 15 units with each meal. She is on Toujeo, dose is unknown. Lipitor 80 mg daily, Brilinta 90 mg daily, lisinopril 2.5 mg daily, metoprolol 25 mg b.i.d., BuSpar 15 mg b.i.d., Januvia 100 mg daily, Glucophage. PHYSICAL EXAMINATION GENERAL: She is awake, alert, oriented to time, place, and person, comfortable, in no acute distress. VITAL SIGNS: Stable. She is afebrile temperature 97.7, pulse 116, blood pressure 100/59. HEENT: EOMI. Pupils equally reactive to light. NECK: Supple. No thyromegaly noted. CHEST: Good air entry. Unit #: [id number] #: [id number] Patient: AMARI CORREIA CVS: Regular rhythm. S1, S2. No murmurs. ABDOMEN: Soft and nontender. Bowel sounds positive. EXTREMITIES: No edema. Ulcers are noted. DIAGNOSTIC STUDIES LABORATORY RESULTS: Sodium 135, potassium 4, chloride 100, CO2 is 13. Troponin in 07/2016 was positive. A1c is 10.2. White cell count is 15,000, hemoglobin 16.2, hematocrit 49.1, and platelet is 3300. ASSESSMENT 1. Diabetes ketoacidosis, most likely due to poor compliance with medications. 2. Coronary artery disease plus stent placement in right coronary artery. PLAN Continue IV fluids with aggressive hydration. Continue insulin drip. Accu-Cheks every hourly. Monitor electrolytes closely and replace as needed per protocol. Discontinue Januvia. Discontinue Glucophage. We will continue to follow the patient for further management. Dictated by... Tamie Marie/ying TD: 12/19/2016 03:08 JOB #: [id number] CONSULTATION REPORT Page 1 of 1 X Marifer Howell MD X CONSULTATION REPORT
--- NOTE | ~2016-12-17 | EKG ---
PATIENT: AMARI CORREIA UNIT #: [id number] Ventricular Rate: 105 BPM Atrial Rate: 105 BPM P-R Interval: 126 ms QRS Duration: 84 ms Q-T Interval: 350 ms QTC Calculation(Bezet): 462 ms P [place]: 69 degrees Calculated R [place]: 69 degrees Calculated T [place]: 16 degrees Diagnosis Line: Sinus tachycardia Diagnosis Line: Nonspecific T wave abnormality Diagnosis Line: Abnormal ECG Diagnosis Line: When compared with ECG of 07-JUL-2016 05:37, Diagnosis Line: T wave inversion less evident in Inferior leads Diagnosis Line: Confirmed by KAILASH CORTEZ MD ([id number]) on 12/18/2016 Diagnosis Line: 3:04:27 PM INTERPRETING MD: DANA CORONA
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
--- NOTE | ~2016-12-17 | CR72 ---
[facility] A Service of [facility] RADIOLOGY TEXT RESULTS PATIENT: AMARI CORREIA LOCATION: [place] [address] : [birth year] UNIT #: [id number] AGE: [address]: PITA GARAY MD SEX: F ORDER DR: [id number] [facility] [address] [place], [place] [address] [id number] I MR#: [id number] Acc #: [id number] NAME: AMARI CORREIA. : 1980 SEX: F STUDY DATE/TIME: 12/17/2016 9:36 UNIT: [facility] ROOM: [facility] STUDY DESCRIPTION: CR Chest Single View Portable Attending Physician: Pita Garay M.D. Ordering Physician: Michael Sanford M.D. Primary Care Physician: Jose Carlos Juarez M.D. MEDICAL IMAGING REPORT This report is preliminary unless electronic signature is present EXAM Chest x-ray single-view portable HISTORY Short of air. Elevated blood sugar. Chest pain for 2 days. History of a shunt as a child. Patient is diabetic. TECHNIQUE Single frontal portable view of the chest timed 09:36 12/17/2016 compared to 07/06/2016. FINDINGS Cardiac silhouette size is top normal. There is evidence for old granulomatous disease. Mild nonspecific prominence of parenchymal markings noted but no focal alveolar infiltrate appreciated. No pneumothorax or pleural effusion. IMPRESSION Probably no active disease in the chest. There is mild prominence of parenchymal markings on comparison to 07/06/2016. This could be technical. Please correlate further clinically. Dictated by... Maraielena Cm M.D. THIS IS AN ELECTRONICALLY VERIFIED REPORT Mariaelena Cm M.D. at 12/18/2016 3:51 PM SAC/pcl TD: 12/18/2016 13:37 JOB #: [id number] [facility] A Service of [facility] RADIOLOGY TEXT RESULTS PATIENT: AMARI CORREIA LOCATION: [address] : [birth year] UNIT #: [id number] AGE: [address]: PITA GARAY MD SEX: F ORDER DR: MEDICAL IMAGING REPORT Page 1 of 1 COPY
[2016-12-17 10:34] LABS: URINE SOURCE CLEAN CATCH
[2016-12-17 10:38] LABS: URINE APPEARANCE CLEAR; URINE BILIRUBIN NEG (NEG); URINE BLOOD TRACE (NEG); URINE COLOR YELLOW; URINE GLUCOSE >1000 MG/DL (NEG); URINE KETONE 3+ (NEG); URINE LEUKOCYTE ESTERASE NEG (NEG); URINE NITRATE NEG (NEG); URINE PROTEIN TRACE (NEG); URINE SPECIFIC GRAVITY 1.029 (1.003-1.035); URINE UROBILINOGEN 0.2 MG/DL (NEG)
[2016-12-17 10:41] LABS: CULTURE INDICATED? YES; URBCS1 AUWI 0-2 /[HPF] (0-2); URINE BACTERIA AUWI 1+ (NEGATIVE); URINE SQUAMOUS EPITHELIAL CELL OCC /[HPF]; UWBCS1 AUWI 0-2 (0-5)
[2016-12-17 11:42] LABS: BASOPHIL% 0.3 % (0-2.5); EOSINOPHIL% 0.1 % (0.0-7.0); HEMATOCRIT 49.1 % (35.0-45.0); LYMPHOCYTE% 6.6 % (17.0-45.0); MEAN CELL VOLUME 89.4 FL (83-96); MEAN CORPUSCULAR HEMOGLOBIN 29.5 PG (28-34); MEAN PLATELET VOLUME 8.4 FL (6.5-11.5); MONOCYTE# 0.9 X10e3 (0-1.0); MONOCYTE% 6.1 % (3.0-12.0); NEUTROPHIL# 13.4 X10e3 (1.5-7.1); NEUTROPHIL% 86.9 % (40-75); PLATELET COUNT 300 X10e3 (140-420); RED BLOOD COUNT 5.49 X10e (3.90-5.30); RED CELL DISTRIBUTION WIDTH 14.3 % (11.0-15.5)
[2016-12-17 11:43] LABS: HEMOGLOBIN 16.2 gm/dL (12.0-16.0); WHITE BLOOD COUNT 15.4 X10e3 (4.0-10.5)
[2016-12-17 11:44] LABS: DIFF IND YES
[2016-12-17 11:48] LABS: POC - TROPONIN 0.2 ng/mL (<=0.05)
[2016-12-17 12:02] LABS: ANISOCYTOSIS SL; PLATELET ESTIMATE NORMAL (NORMAL)
[2016-12-17] MEDS ORDERED: LIPITOR PO (12:02)
[2016-12-17] MEDS ORDERED: BUSPAR15 M1 PO (12:03)
[2016-12-17] MEDS ORDERED: METOPROLOL TAR25 MG PO (12:03)
[2016-12-17] MEDS ORDERED: BRILINTA90 MG PO (12:03)
[2016-12-17] MEDS ORDERED: LISINOPRIL2.5 MG PO (12:03)
[2016-12-17] MEDS ORDERED: NOVOLOG100 UNITS/ SUBQ (12:04)
[2016-12-17] MEDS ORDERED: JANUVIA PO (12:04)
[2016-12-17 12:05] LABS: ALBUMIN SERUM 4.9 g/dL (3.5-5.0); BILIRUBIN, DIRECT 0.1 mg/dL (0.0-0.2); BILIRUBIN,TOTAL 1.1 mg/dL (0.2-2.0); BUN/CREATININE RATIO 18.33; CALCIUM SERUM 9.9 mg/dL (8.4-10.2); CREATININE SERUM 1.2 mg/dL (0.6-1.4); GLOM FILT RATE Estimated 58.1 mL/min (>60); PROTEIN TOTAL SERUM 8.6 g/dL (6.0-8.3)
[2016-12-17] MEDS ORDERED: GLUCOPHAGE XR750 MG PO (12:05)
[2016-12-17 13:18] LABS: BETA HYDROXYBUTYRATE 6.47 MMOL/L (0.02-0.27); PHOSPHOROUS 3.2 mg/dL (2.5-4.6)
[2016-12-17] MEDS ORDERED: ASPIRIN81 MG PO (15:46)
[2016-12-17] MEDS ORDERED: FLEXERIL10 MG PO (15:47)
[2016-12-17] MEDS ORDERED: HYDROCODON-ACE1 EAC7 PO (15:50)
[2016-12-17 15:54] LABS: BUN/CREATININE RATIO 25.71; CALCIUM SERUM 8.6 mg/dL (8.4-10.2); CREATININE SERUM 0.7 mg/dL (0.6-1.4); GLOM FILT RATE Estimated 111.5 mL/min (>60); POTASSIUM 4.2 mmol/L (3.5-5.1)
== END 2016-12-17 19:45 | disposition left against medical advice (07) | DRG 639 ==
LOC: CED 09:00 → CEDOF 12:30 → CED 12:59 → CICCU2 15:06 → CEDOF 15:06 → CICCU2 15:06
PROVIDERS: Emergency Medicine
DX: E10.10 Type 1 diabetes mellitus with ketoacidosis without coma (principal); I10 Essential (primary) hypertension; F17.210 Nicotine dependence, cigarettes, uncomplicated; E78.5 Hyperlipidemia, unspecified; I25.10 Atherosclerotic heart disease of native coronary artery without angina pectoris; Z79.4 Long term (current) use of insulin; Z95.5 Presence of coronary angioplasty implant and graft; Z86.14 Personal history of Methicillin resistant Staphylococcus aureus infection; Z91.14 Patient's other noncompliance with medication regimen; M54.2 Cervicalgia; I25.2 Old myocardial infarction; Z98.51 Tubal ligation status
CPT/HCPCS: 36415; 71010; 80048; 80076; 81003; 82010; 82150; 82553; 82947; 83036; 83690; 84100; 84484; 84703; 85025; 87040; 87086; 93005; 96360; 96361; 99291; J1650; J1815

== ENCOUNTER 2016-12-26 11:40 | Emergency (ER) | payer MEDICARE, OTHER ==
[~2016-12-26] VITALS: Ht 154.9 cm; Wt 62.1 kg
--- NOTE | ~2016-12-26 | CR58 ---
[facility] A Service of [facility] RADIOLOGY TEXT RESULTS PATIENT: AMARI CORREIA LOCATION: [facility] : [birth year] UNIT #: [id number] AGE: [address]: Femi Palma MD SEX: F ORDER DR: [id number] [facility] [address] [place], [place] [address] [id number] E MR#: [id number] Acc #: [id number] NAME: AMARI CORREIA : 1980 SEX: F STUDY DATE/TIME: 12/26/2016 13:06 UNIT: [facility] ROOM: STUDY DESCRIPTION: CR Cervical Spine 2 or 3 Views Attending Physician: Femi Palma M.D. Ordering Physician: Femi Palma M.D. Primary Care Physician: Jose Carlos Juarez M.D. MEDICAL IMAGING REPORT This report is preliminary unless electronic signature is present EXAM 3 views of the cervical spine DATE 12/26/2016 HISTORY 36-year-old female with neck pain for 2 weeks. No known injury. COMPARISON Cervical spine MRI 12/26/2014. FINDINGS No acute cervical spine fracture or subluxation is seen. There is a diminished disc height at C4-5, C5-6, C6-7. C7 and upper T1 are not satisfactorily visualized in the lateral image. Suspected posterior osteophyte formation at C4-5 and C5-6 and C6-7 may result in canal stenosis. No significant facet arthropathy is identified and the craniocervical junction is intact. No cervical spine fracture or subluxation is seen. IMPRESSION 1. Diminished disc height with posterior osteophyte formation predominates at C4-5, C5-6 and C6-7, probably resulting in cervical canal stenosis. 2. No acute cervical spine findings are identified. C7 and upper T1 are not visualized in the lateral projection. Dictated by... Thania Pereira M.D. THIS IS AN ELECTRONICALLY VERIFIED REPORT Thania Pereira M.D. at 12/29/2016 8:52 AM [facility] A Service of [facility] & [facility] RADIOLOGY TEXT RESULTS PATIENT: AMARI CORREIA [facility] #: [id number] : [birth year] UNIT #: [id number] AGE: [address]: Femi Palma MD SEX: F ORDER DR: NICOLETTE/tani TD: 12/26/2016 22:51 JOB #: [id number] MEDICAL IMAGING REPORT Page 1 of 1 COPY
[~2016-12-26 11:40] MED LIST changes: +ASPIRIN81 MG PO; +BUSPAR15 M1 PO; +FLEXERIL10 MG PO; +GLUCOPHAGE XR750 MG PO; +HYDROCODON-ACE1 EAC7 PO; +LIPITOR PO; +LISINOPRIL2.5 MG PO; +NOVOLOG100 UNITS/ SUBQ
== END 2016-12-26 14:12 | disposition home or self-care (01) ==
LOC: CED 11:40
DX: S16.1XXA Strain of muscle, fascia and tendon at neck level, initial encounter (principal); I25.10 Atherosclerotic heart disease of native coronary artery without angina pectoris; E11.9 Type 2 diabetes mellitus without complications; E78.00 Pure hypercholesterolemia, unspecified; F17.200 Nicotine dependence, unspecified, uncomplicated; Z88.8 Allergy status to other drugs, medicaments and biological substances; Z79.82 Long term (current) use of aspirin; Z79.899 Other long term (current) drug therapy; X58.XXXA Exposure to other specified factors, initial encounter
CPT/HCPCS: 72040; 82947; 96372; 99284; J1885

== ENCOUNTER 2016-12-31 11:57 | Emergency (ER) | payer MEDICARE, OTHER ==
[~2016-12-31] VITALS: Ht 154.9 cm; Wt 62.1 kg
--- NOTE | ~2016-12-31 | EKG ---
PATIENT: AMARI CORREIA UNIT #: [id number] Ventricular Rate: 122 BPM Atrial Rate: 122 BPM P-R Interval: 118 ms QRS Duration: 74 ms Q-T Interval: 328 ms QTC Calculation(Bezet): 467 ms P [place]: 67 degrees Calculated R [place]: 74 degrees Calculated T [place]: 7 degrees Diagnosis Line: Sinus tachycardia Diagnosis Line: Possible Left atrial enlargement Diagnosis Line: Borderline ECG Diagnosis Line: When compared with ECG of 17-DEC-2016 09:42, Diagnosis Line: Non-specific change in ST segment in Anterior Diagnosis Line: leads Diagnosis Line: Confirmed by ERNIE HAYES MD ([id number]) on Diagnosis Line: 01/02/2017 1:50:25 PM INTERPRETING MD: FREDDY CORONA
[2016-12-31 13:27] LABS: URINE SOURCE CLEAN CATCH
[2016-12-31 13:31] LABS: BASOPHIL# 0.1 X10e3 (0-0.3); BASOPHIL% 1.3 % (0-2.5); EOSINOPHIL# 0.1 X10e3 (0-0.7); EOSINOPHIL% 1.2 % (0.0-7.0); HEMATOCRIT 44.5 % (35.0-45.0); HEMOGLOBIN 15.2 gm/dL (12.0-16.0); LYMPHOCYTE# 1.9 X10e3 (1.0-3.5); LYMPHOCYTE% 21.5 % (17.0-45.0); MEAN CELL VOLUME 88.3 FL (83-96); MEAN CORPUSCULAR HEMOGLOBIN 30.1 PG (28-34); MEAN CORPUSCULAR HGB CONC 34.1 g/dL (30-36); MEAN PLATELET VOLUME 7.7 FL (6.5-11.5); MONOCYTE# 0.5 X10e3 (0-1.0); MONOCYTE% 5.2 % (3.0-12.0); NEUTROPHIL# 6.1 X10e3 (1.5-7.1); NEUTROPHIL% 70.8 % (40-75); PLATELET COUNT 414 X10e3 (140-420); RED BLOOD COUNT 5.04 X10e (3.90-5.30); RED CELL DISTRIBUTION WIDTH 13.4 % (11.0-15.5); WHITE BLOOD COUNT 8.7 X10e3 (4.0-10.5)
[2016-12-31 13:32] LABS: URINE APPEARANCE CLEAR; URINE BILIRUBIN NEG (NEG); URINE BLOOD 1+ (NEG); URINE COLOR YELLOW; URINE GLUCOSE 300 MG/DL (NORM); URINE LEUKOCYTE ESTERASE NEG (NEG); URINE NITRATE NEG (NEG); URINE PH 5.5 (5-8); URINE PROTEIN NEG (NEG); URINE UROBILINOGEN 0.2 MG/DL (NORM)
[2016-12-31 13:42] LABS: AMPHETAMINE NEG (NEG); BARBITURATES NEG (NEG); BENZODIAZEPINES NEG (NEG); COCAINE NEG (NEG); MARIJUANA NEG (NEG); OPIATES NEG (NEG); TRICYCLIC ANTIDEPRESSANTS POS (NEG); U METHADONE NEG (NEG)
[2016-12-31 13:43] LABS: POC - MYOGLOBIN 66.2 ng/mL (0.0-169.0); POC - TROPONIN <0.05 ng/mL (<=0.05)
[2016-12-31 13:49] LABS: ALBUMIN SERUM 4.3 g/dL (3.5-5.0); BILIRUBIN, DIRECT 0.1 mg/dL (0.0-0.2); BILIRUBIN,TOTAL 1.1 mg/dL (0.2-2.0); CALCIUM SERUM 9.6 mg/dL (8.4-10.2); GLOM FILT RATE Estimated 72.5 mL/min (>60); POTASSIUM 4.3 mmol/L (3.5-5.1); PROTEIN TOTAL SERUM 7.7 g/dL (6.0-8.3)
[2016-12-31 14:00] LABS: DIFF IND NO
[2016-12-31 14:04] LABS: URINE KETONE 3+ (NEG)
[2016-12-31 14:05] LABS: MICRO INDICATED? YES
[2016-12-31 14:18] LABS: ACETONE, SERUM 30 MG/DL (0-0); BETA-HCG SCREEN-PREGNANCY NEG
[2016-12-31 14:19] LABS: URINE BACTERIA 1+ (NEG); URINE SQUAMOUS EPITHELIAL CELL MODERATE /[HPF]
[2016-12-31 14:20] LABS: URINE TRANSITIONAL EPI CELLS OCCAS /[HPF]; URINE YEAST PRESENT
[2016-12-31 14:37] LABS: ARTERIAL BLD GAS O2 SATURATION 92.4 % (90.0-100.0); ARTERIAL BLOOD GAS CARBOXY HB 5.2 %sat (0.0-9.0); ARTERIAL BLOOD GAS HCO3 17.7 mmol/L
[2016-12-31 14:43] LABS: ARTERIAL BLOOD GAS ALLEN TEST NORMAL; ARTERIAL BLOOD GAS ART SITE LEFT RADIAL; ARTERIAL BLOOD GAS MET HB -1.2 %sat (0.0-2.0); ARTERIAL DRAW? YES
[2016-12-31 14:44] LABS: ARTERIAL BLOOD GAS DELIVERY ROOM AIR
== END 2016-12-31 15:11 | disposition home or self-care (01) ==
LOC: SED 11:57
PROVIDERS: Emergency Medicine
DX: M54.2 Cervicalgia (principal); G89.29 Other chronic pain; E11.65 Type 2 diabetes mellitus with hyperglycemia; F17.200 Nicotine dependence, unspecified, uncomplicated; Z79.82 Long term (current) use of aspirin; Z79.899 Other long term (current) drug therapy; Z88.8 Allergy status to other drugs, medicaments and biological substances
CPT/HCPCS: 36415; 36600; 80048; 80076; 80307; 81003; 82010; 82553; 82803; 82947; 83874; 84484; 84703; 85025; 93005; 96361; 96374; 99283; J1885

== ENCOUNTER → 2017-01-03 | Outpatient (CLI) | payer MEDICARE, OTHER ==
[~2017-01-03] MED LIST changes: +ASPIRIN81 M2 PO; +BACLOFEN20 M1 PO; +BUSPAR15 M2 PO; +LISINOPRIL PO; +LOPRESSOR PO; +LYRICA PO; +PATIENT'S PHARMACY
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
== END | disposition home or self-care (01) ==
LOC: CMRI 13:00
DX: M50.10 Cervical disc disorder with radiculopathy, unspecified cervical region (principal); M47.22 Other spondylosis with radiculopathy, cervical region; M48.02 Spinal stenosis, cervical region
CPT/HCPCS: 72141

== ENCOUNTER 2017-01-13 11:34 | Inpatient (IN) | payer MEDICARE, OTHER ==
[~2017-01-13] VITALS: Ht 152.4 cm; Wt 60.8 kg
--- NOTE | ~2017-01-13 | TH ---
Unit #: [id number] #: [id number] Patient: AMARI CORREIA [id number] [address] [address] [id number] I MR#: [id number] NAME: AMARI CORREIA : 1980 SEX: F STUDY DATE/TIME: 01/16/2017 UNIT: [facility] ROOM: 578 STUDY DESCRIPTION: Attending Physician: Colton Hanks M.D. Primary Care Physician: Jose Carlos Juarez M.D. CARDIOLOGY REPORT EXAM Nuclear stress test. INDICATIONS Chest pain. SUMMARY Patient underwent nuclear stress test. Received a resting dose of 10.22 mCi and a stress dose of 31.7 mCi. On gated imaging, patient appears to have normal wall motion with preserved ejection fraction. Patient's LV EF is 57%. On raw images, there appears to be an inferior attenuation artifact present. On perfusion images comparing rest and stress images, there appears to be no reversible perfusion defects. CONCLUSION 1. No obvious ischemia. 2. Inferior attenuation artifact present. 3. Preserved ejection fraction. 4. ECG portion dictated separately. Dictated by... Princess Henry M.D. DC/shante TD: 01/19/2017 10:58 JOB #: [id number] Unit #: [id number] #: [id number] Patient: AMARI CORREIA CARDIOLOGY REPORT Page 1 of 1 X PRINCESS HENRY MD CARDIOLOGY REPORT
--- NOTE | ~2017-01-13 | ST ---
Unit #: [id number] #: [id number] Patient: AMARI CORREIA [id number] [address] [place], [place] [address] [id number] I MR#: [id number] NAME: AMARI CORREIA : 1980 SEX: F STUDY DATE/TIME: 01/16/2017 UNIT: [facility] ROOM: 578 STUDY DESCRIPTION: Attending Physician: Colton Hanks M.D. Primary Care Physician: Jose Carlos Juarez M.D. CARDIOLOGY REPORT EXAM Lexiscan Cardiolite stress test. FINDINGS Baseline EKG shows normal sinus rhythm with a rate of 97 beats per minute. There are Q waves noted in the inferior leads of III and aVF with questionable old inferior infarct. There is T-wave inversion in V1 through V4. PROCEDURE Lexiscan was injected immediately followed by Cardiolite. The patient had no complaints of chest pain, palpitations, or dizziness. EKG during Lexiscan showed persistent T-wave inversion in V1 through V4. Maximum blood pressure response 138/93 mmHg. Baseline blood pressure 135/90 mmHg. Please correlate these results with nuclear images. Dictated by... Rene RichardsonPClayRClayN. for Tamie Maguire/shante TD: 01/16/2017 14:52 JOB #: [id number] CARDIOLOGY REPORT Page 1 of 1 X Isra Duvall APRN CARDIOLOGY REPORT
--- NOTE | ~2017-01-13 | EKG ---
PATIENT: AMARI CORREIA UNIT #: [id number] Ventricular Rate: 79 BPM Atrial Rate: 79 BPM P-R Interval: 114 ms QRS Duration: 78 ms Q-T Interval: 388 ms QTC Calculation(Bezet): 444 ms P [place]: 66 degrees Calculated R [place]: 58 degrees Calculated T [place]: 40 degrees Diagnosis Line: Normal sinus rhythm Diagnosis Line: Normal ECG Diagnosis Line: When compared with ECG of 31-DEC-2016 12:24, Diagnosis Line: Vent. rate has decreased BY 43 BPM Diagnosis Line: Confirmed by CLAY GRESHAM MD ([id number]) on 01/15/2017 Diagnosis Line: 10:59:18 PM INTERPRETING MD: MARGA CORONA
--- NOTE | ~2017-01-13 | EKG ---
PATIENT: AMARI CORREIA UNIT #: [id number] Ventricular Rate: 104 BPM Atrial Rate: 104 BPM P-R Interval: 114 ms QRS Duration: 92 ms Q-T Interval: 350 ms QTC Calculation(Bezet): 460 ms P [place]: 72 degrees Calculated R [place]: 83 degrees Calculated T [place]: 40 degrees Diagnosis Line: Sinus tachycardia Diagnosis Line: Otherwise normal ECG Diagnosis Line: When compared with ECG of 13-JAN-2017 11:38, Diagnosis Line: (unconfirmed) Diagnosis Line: No significant change was found Diagnosis Line: Confirmed by KAILASH CORTEZ MD ([id number]) on 01/18/2017 Diagnosis Line: 7:39:59 AM INTERPRETING MD: DANA CORONA
--- NOTE | ~2017-01-13 | DS ---
Unit #: [id number] #: [id number] Patient: AMARI CORREIA [id number] [address] [address] [id number] I MR#: [id number] NAME: AMARI CORREIA ROOM: 578 Age: 36 Sex: F Admission Date: 01/13/2017 : 1980 Discharge Date: 01/16/2017 Attending Physician: Colton Hanks M.D. Primary Care Physician: Jose Carlos Juarez M.D. DISCHARGE SUMMARY DISCHARGE DIAGNOSES 1. Chest pain, ruled out for an acute myocardial infarction. 2. Normal Lexiscan Cardiolite stress test on 01/16/2017. 3. Diabetic ketoacidosis, resolved. 4. History of percutaneous coronary intervention and stent to the proximal circumflex artery in 07/2016. 5. Cervical disc disease. 6. Chronic pain syndrome. 7. Nicotine abuse. 8. Noncompliance. 9. Diabetes mellitus, type 1. DISCHARGE MEDICATIONS Lyrica 50 mg b.i.d., atorvastatin 80 mg q.h.s., BuSpar 15 mg b.i.d., metoprolol tartrate 25 mg b.i.d., lisinopril 2.5 mg daily, aspirin 81 mg daily, Brilinta 90 mg b.i.d., baclofen 20 mg b.i.d., Flexeril 10 mg t.i.d. p.r.n., insulin as per Dr. Howell. HOSPITAL COURSE This is a 36-year-old white female, who came to the emergency room because of chest pain. She was ruled out for an acute myocardial infarction, where her cardiac enzymes and troponin were negative. She was scheduled to undergo Lexiscan Cardiolite stress test and resting images were done, however, the patient was found to have an elevated glucose level of 549. Stress test was counseled and she was transferred to the intensive care unit for DKA, where she was placed on insulin per protocol. Dr. Howell was consulted. She was started on IV fluids. She had abnormal laboratory values, where her potassium level was 5.4 and CO2 was as low as 6. When the blood glucose stabilized, her laboratory values improved. She was maintained on Levemir 15 units b.i.d. as well as sliding scale insulin. She was transferred to the floor. The following day, the patient had a Lexiscan Cardiolite stress test that was normal. She had a complaint of cervical neck pain. She had appointment previously scheduled for a neurosurgeon on Monday. Her vital signs were stable. If Dr. Howell agrees she can be discharged home today. PHYSICAL EXAMINATION VITAL SIGNS: Blood pressure 135/90, heart rate 101. CHEST: Clear to auscultation. HEART: S1 and S2. Regular rate and rhythm. ABDOMEN: Soft with bowel sounds present. EXTREMITIES: Without leg edema. Unit #: [id number] #: [id number] Patient: AMARI CORREIA DIAGNOSTIC STUDIES LABORATORY RESULTS: Glucose 279, BUN 11, creatinine 0.5, sodium 136, potassium 4.0. CARDIOVASCULAR STUDIES: Rhythm strip shows normal sinus rhythm. DISCHARGE INSTRUCTIONS 1. The patient will be discharged home today. 2. Follow up with Dr. Trevizo on 04/18/2017 at 12:30 p.m. Follow up with Dr. Howell as per his request. 3. The patient is continue on dual antiplatelet therapy with aspirin and Brilinta at least for 6 more months, because of drug-eluting stent placed in 07/2016. The patient states she has cardiac medications at home. 4. Follow up with her neurosurgeon as previously scheduled in a.m. 5. Encourage the patient to quit smoking. Dictated by... Rene RichardsonPClayRAmairani for Tamie Maguire/ying TD: 01/19/2017 12:40 JOB #: [id number] CC: Tamie Sim M.D. DISCHARGE SUMMARY Page 1 of 1 X Isra Duvall APRN DISCHARGE SUMMARY
--- NOTE | ~2017-01-13 | HP ---
Unit #: [id number] #: [id number] Patient: AMARI CORREIA [id number] [address] [place], [place] [address] [id number] I MR#: [id number] NAME: AMARI CORREIA ROOM: [facility] Age: 36 Sex: F Admission Date: 01/14/2017 : 1980 Attending Physician: Colton Hanks M.D. Primary Care Physician: Jose Carlos Juarez M.D. HISTORY AND PHYSICAL HISTORY OF PRESENT ILLNESS This is a 36-year-old white female who is well known to our group that has a history of non-ST elevation myocardial infarction in July 2016 where she underwent PCI with drug-eluting stent to the circumflex artery. She is known to have longstanding history of diabetes and has been admitted on several occasions for DKA. Her last admission to this facility was in mid-December. According to the family, the patient was also recently at [facility] for DKA and left AMA. She comes to the emergency room with the complaint of chest pain. She reports substernal chest pain that is nonradiating to her neck, arm or jaw. Chest pain is made worse with deep inspiration, cough and movement. The pain has been constant. She also has the complaint of chronic neck and back pain with numbness to her left arm. She has been seen by her primary care physician and MRI of her cervical spine was ordered which found her to have degenerative disc disease with multiple level of canal stenosis. There are multiple level foraminal impingement, some which were severe. She was to see an orthopedic surgeon on Monday. She has been prescribed Lyrica and muscle relaxers. She is somewhat lethargic and occasional confused. She says she is not eating or drinking well in the last day. She has been laying down at home, barely getting up to go to the bathroom because of back pain. Her cardiac enzymes and troponin are negative. EKG shows no acute ischemic changes. She was also noted to have elevated blood glucose this morning of 534 per Accu-Chek. She did not receive her p.m. dose of insulin. Upon further questioning, the patient states she was taking her medications as prescribed including Brilinta. However, the medication list that she provided to the nurse shows she was only on Brilinta once a day. PAST MEDICAL HISTORY 1. Non-ST elevation myocardial infarction status post cardiac catheterization 07/06/[address] Hanks at [facility] that revealed left main normal. Mid LAD 60 to 70%. First diagonal branch 70% at its origin. Left circumflex artery 95% proximal. Right coronary artery 100% at the junction of the proximal one-third, distal two-third. PDA normal. PLV branch 90% near its origin. There are sfla-bd-hvkod collaterals. Ejection fraction of 45 to 50%. 2. Status post PCI with drug-eluting stent to the proximal left circumflex artery 07/06/2016. 2-D echocardiogram, on 07/05/2011, showed an ejection fraction equal to 50 to 55% with inferior wall hypokinesis. There is trace mitral regurgitation. 3. Cardiac catheterization, 11/2016, at [facility], status post PCI and stent to unknown vessel. No details available. Unit #: [id number] #: [id number] Patient: AMARI CORREIA 4. Hyperlipidemia. 5. Diabetes mellitus type one. 6. Cervical disc disease. 7. Active smoker. PAST SURGICAL HISTORY 1. Shunt to her head as a child. 2. D and C. 3. Tubal ligation. 4. Surgery for MRSA to her left leg. SOCIAL HISTORY Patient lives with her boyfriend. She is disabled. She smokes at least a pack of cigarettes daily for the past 20 years. She denies any current illicit drug use. FAMILY HISTORY Negative for coronary artery disease. ALLERGIES Phenytoin. HOME MEDICATIONS 1. Lyrica 50 mg b.i.d. 2. Baclofen 20 mg b.i.d. 3. Zestril 2.5 mg daily. 4. Lipitor 80 mg daily. 5. Lopressor 25 mg b.i.d. 6. Brilinta 90 mg. 7. Flexeril 10 mg t.i.d. p.r.n. 8. BuSpar 15 mg b.i.d. 9. Toujeo 30 units subcu daily. 10. Aspirin 81 mg daily. REVIEW OF SYSTEMS Unable to fully obtain because of the patient's lethargy. See details in the HPI. PHYSICAL EXAMINATION GENERAL APPEARANCE: This is a 36-year-old, young, white female who is in no acute respiratory distress. VITAL SIGNS: Blood pressure 114/64. Heart rate 124. Temperature 97.4. BMI 26. NEUROLOGIC: She will awaken and is alert at times but mostly lethargic, answers questions but falls off to sleep. NECK: Trachea is midline. No thyromegaly or lymphadenopathy. No jugular venous distention. HEART: S1, S2 heart sounds are normal. No murmurs or rubs or clicks. Regular rate and rhythm. LUNGS: Diminished breath sounds both lung bases without rales, rhonchi, wheeze. ABDOMEN: Soft, nontender but bowel sounds are present. EXTREMITIES: Without leg edema. SKIN: Warm and dry. DIAGNOSTIC STUDIES LABORATORY STUDIES: Sodium 139, potassium 3.9, BUN 19, creatinine 0.7, glucose 202. Troponin less than 0.05 x2 and less than 0.03. Cholesterol Unit #: [id number] #: [id number] Patient: CORREIA,AMARI STAR 172, triglycerides 177, LDL 79, HDL 58. TSH 0.45. White count 7.8, hemoglobin 15.2, hematocrit 46.5, platelet count 268. DIAGNOSTIC IMAGING: CTA of the chest showed limited study. There is no pulmonary embolism seen. No airspace disease. CARDIOVASCULAR: EKG shows normal sinus rate, rate of 79 beats per minute, otherwise, normal. IMPRESSION 1. Atypical chest pain. 2. Diabetic ketoacidosis. 3. Previous non-ST elevation myocardial infarction 07/06/2016 status post percutaneous coronary intervention with drug-eluting stent to the circumflex artery, 07/2016. 4. Questionable percutaneous coronary intervention and stent at [facility], 11/2016. No details available. 5. Diabetes mellitus type one. 6. Hyperlipidemia. 7. Nicotine abuse. 8. Cervical disc disease. PLAN 1. The patient was scheduled for a Lexiscan Cardiolite stress test. We will cancel the stress test because of DKA. Have low suspicion for recurrent ischemic heart disease. 2. We will ask Dr. Howell to see the patient for DKA. She will be transferred to the unit and placed on insulin drip. 3. We will start the patient on IV fluids. 4. Repeat laboratory values. 5. Continue on dual-antiplatelet therapy with aspirin and Brilinta because of drug-eluting stent less than one year. Dictated by Isra Duvall A.P.R.N. for Tamie Matthew/myranda TD: 01/14/2017 17:09 JOB #: [id number] HISTORY AND PHYSICAL Page 1 of 1 X Isra Duvall APRN X HISTORY AND PHYSICAL
--- NOTE | ~2017-01-13 | CT16 ---
[facility] A Service of [facility] & [facility] RADIOLOGY TEXT RESULTS PATIENT: AMARI CORREIA [facility] [birth year] UNIT #: [id number] AGE: [address]: Colton Hanks MD SEX: F ORDER DR: [id number] [facility] [address]. [place], [place] [address] [id number] I MR#: [id number] Acc #: [id number] NAME: AMARI CORREIA : 1980 SEX: F STUDY DATE/TIME: 01/13/2017 15:14 UNIT: [facility] ROOM: 565 STUDY DESCRIPTION: CT Angio Chest for PE Attending Physician: Colton Hanks M.D. Ordering Physician: Osiel Machado M.D. Primary Care Physician: Jose Carlos Juarez M.D. MEDICAL IMAGING REPORT This report is preliminary unless electronic signature is present EXAMINATION CTA chest, PE protocol with IV contrast. DATE 01/13/2017 HISTORY 36-year-old female chest pain, difficulty walking, right lower extremity pain. Symptoms began today. COMPARISON CT angiography of the chest 08/04/2014. AP portable chest 12/17/2016. PROCEDURE 2 mm axial images through the chest after IV contrast administration. 3-D coronal MIP reformatted images were obtained. This CT exam was performed with one or more of the following radiation dose reduction techniques: automatic exposure control, adjustment of mA and/or kV according to patient size, and iterative reconstruction. FINDINGS Technologist states that these are the best images obtainable as the patient was groggy and unable to hold his breath for the examination. Allowing for this limitation, no central pulmonary embolism is seen. There is no evidence of aortic aneurysm or aortic dissection. Trace amount residual thymic tissue is present within anterior mediastinum. No pericardial effusion or pleural effusion or pathologically enlarged lymph nodes. Densely calcified lymph nodes are present within the right hilum consist with old granulomatous disease. Benign calcified granuloma in the right upper lobe. Presumed stent within the left circumflex coronary artery. [facility] A Service of [facility] RADIOLOGY TEXT RESULTS PATIENT: AMARI CORREIA LOCATION: [facility] : [birth year] UNIT #: [id number] AGE: [address]: Colton Hanks MD SEX: F ORDER DR: No acute airspace disease is seen. Included portions of the upper abdominal organs are within normal limits. No acute osseous abnormalities. IMPRESSION 1. The study is slightly limited as the patient was unable to cooperate for breath-hold technique. Allowing for this, no pulmonary embolism is seen. 2. No acute airspace disease. 3. Presumed calcification versus stent in the vicinity of the left circumflex coronary artery. Please correlate with cardiac history. Dictated by... Thania Pereira M.D. THIS IS AN ELECTRONICALLY VERIFIED REPORT Thania Pereira M.D. at 01/14/2017 1:11 PM NICOLETTE/eliseo TD: 01/13/2017 22:22 JOB #: [id number] MEDICAL IMAGING REPORT Page 1 of 1 COPY
--- NOTE | ~2017-01-13 | CO ---
Unit #: [id number] #: [id number] Patient: AMARI CORREIA [id number] [address] [place], [place] [address] [id number] I MR#: [id number] NAME: AMARI CORREIA ROOM: [facility] Age: 36 Sex: F Admission Date: 01/13/2017 : 1980 Attending Physician: Colton Hanks M.D. Primary Care Physician: Jose Carlos Juarez M.D. Consultation Date: 01/14/2017 CONSULTATION REPORT REASON FOR CONSULTATION Type management of the diabetes ketoacidosis. HISTORY OF PRESENT ILLNESS She is a 36-year-old female with history of type 1 diabetes mellitus for several years, history of poor compliance, history of signed AMA recently from [facility], who came to the [facility] room. Her chief complaint is the chest pain. However, this morning she was found to be very lethargic and confused. On her labs, she was found to be in severe diabetes ketoacidosis. She was transferred to the unit bed for further management. I have been asked to see the patient for further management. PAST MEDICAL HISTORY Type 1 diabetes mellitus, poorly controlled due to poor compliance; coronary artery disease, status post stent placement to the left circumflex; multiple cardiac cath; hyperlipidemia; tobacco use. PAST SURGICAL HISTORY Shunt in the head, MRSA of left leg, history of D and C, tubal ligation. SOCIAL HISTORY Continues to smoke one pack per day for more than 20 years. Declines alcohol. No history of alcohol use or tobacco use. CURRENT MEDICATIONS List was reviewed. I am not sure how much insulin the patient is taking. The patient is unable to give any history at this time. REVIEW OF SYSTEMS Unable to obtain since the patient is lethargic. She is arousable though. PHYSICAL EXAMINATION GENERAL: She is lying comfortably. No acute distress. VITAL SIGNS: Temperature 98.1, pulse is 123, respiration 21, blood pressure is 126/70. HEENT: EOMI. Pupils equally reactive to light. NECK: Supple. No thyromegaly noted. CHEST: Good air entry. CVS: Regular rhythm. No murmurs. ABDOMEN: Soft and nontender. Bowel sounds positive. EXTREMITIES: No edema or ulcers noted. SKIN: No rashes. No ulcers. Unit #: [id number] #: [id number] Patient: AMARI CORREIA DIAGNOSTIC STUDIES LABORATORY RESULTS: Creatinine is 1.5, glucose 508, sodium 129, potassium 5.4, chloride 95, CO2 is 6. Last A1c in 12/2016 was 10.2. Positive ketones. ASSESSMENT 1. Diabetes ketoacidosis. 2. History of poor compliance. 3. Coronary artery disease, status post stent. 4. Hyponatremia. 5. Hyperkalemia. PLAN Start aggressive hydration with normal saline. Then, we will be switched to the D5 half-normal when the patient's blood glucose is less than 250. Accu-Cheks every hourly. Replace electrolytes as needed. Monitor potassium closely. Monitor phosphorus. Discontinue all subcu insulin. Continue insulin drip at this point. We will continue to follow the patient for further management. Dictated by... Tamie Marie/ying TD: 01/14/2017 19:06 JOB #: [id number] CONSULTATION REPORT Page 1 of 1 X Marifer Howell MD X CONSULTATION REPORT
--- NOTE | ~2017-01-13 | CR72 ---
[facility] A Service of [facility] & [facility] RADIOLOGY TEXT RESULTS PATIENT: AMARI CORREIA LOCATION: [place] [address] : [birth year] UNIT #: [id number] AGE: [address]: Colton Hanks MD SEX: F ORDER DR: [id number] [facility] [address] [facility] [place], [place] [address] [id number] I MR#: [id number] Acc #: [id number] NAME: AMARI CORREIA : 1980 SEX: F STUDY DATE/TIME: 01/14/2017 13:30 UNIT: [facility] ROOM: [facility] STUDY DESCRIPTION: CR Chest Single View Portable Attending Physician: Colton Hanks M.D. Ordering Physician: Marifer Howell M.D. Primary Care Physician: Jose Carlos Juarez M.D. MEDICAL IMAGING REPORT This report is preliminary unless electronic signature is present EXAM Single view chest. INDICATIONS Diabetic ketoacidosis. Shortness of air and chest pain. Two day duration. FINDINGS Single portable AP view of the chest compared to 12/17/2016. Heart and mediastinal contours normal. The lungs are clear. No pleural effusion. IMPRESSION No acute cardiopulmonary findings. Dictated by... Herberth Teague M.D. THIS IS AN ELECTRONICALLY VERIFIED REPORT Herberth Teague M.D. at 01/15/2017 1:26 PM MACHELLE/eliseo TD: 01/15/2017 07:02 JOB #: [id number] MEDICAL IMAGING REPORT Page 1 of 1 COPY
[~2017-01-13 11:34] MED LIST changes: -ASPIRIN81 M2 PO; -BACLOFEN20 M1 PO; -BUSPAR15 M2 PO; -LISINOPRIL PO; -LOPRESSOR PO; -LYRICA PO; -PATIENT'S PHARMACY
[2017-01-13 12:45] LABS: BASOPHIL# 0.1 X10e3 (0-0.3); BASOPHIL% 0.7 % (0-2.5); DIFF IND NO; EOSINOPHIL# 0.2 X10e3 (0-0.7); EOSINOPHIL% 3.1 % (0.0-7.0); HEMATOCRIT 46.5 % (35.0-45.0); HEMOGLOBIN 15.2 gm/dL (12.0-16.0); LYMPHOCYTE# 2.4 X10e3 (1.0-3.5); LYMPHOCYTE% 30.4 % (17.0-45.0); MEAN CELL VOLUME 89.2 FL (83-96); MEAN CORPUSCULAR HEMOGLOBIN 29.2 PG (28-34); MEAN CORPUSCULAR HGB CONC 32.7 g/dL (30-36); MEAN PLATELET VOLUME 8.1 FL (6.5-11.5); MONOCYTE# 0.5 X10e3 (0-1.0); NEUTROPHIL# 4.6 X10e3 (1.5-7.1); NEUTROPHIL% 58.8 % (40-75); PLATELET COUNT 268 X10e3 (140-420); RED BLOOD COUNT 5.21 X10e (3.90-5.30); WHITE BLOOD COUNT 7.8 X10e3 (4.0-10.5)
[2017-01-13 13:12] LABS: ALBUMIN SERUM 3.9 g/dL (3.5-5.0); BILIRUBIN, DIRECT 0.2 mg/dL (0.0-0.2); BILIRUBIN,INDIRECT 0.6 mg/dL (0.0-0.9); BILIRUBIN,TOTAL 0.8 mg/dL (0.2-2.0); BUN/CREATININE RATIO 27.14; CALCIUM SERUM 9.4 mg/dL (8.4-10.2); CREATININE SERUM 0.7 mg/dL (0.6-1.4); GLOM FILT RATE Estimated 111.5 mL/min (>60); POTASSIUM 3.9 mmol/L (3.5-5.1); PROTEIN TOTAL SERUM 7.1 g/dL (6.0-8.3)
[2017-01-13 14:15] LABS: POC - TROPONIN <0.05 ng/mL (<=0.05)
[2017-01-13] MEDS ORDERED: PATIENT'S PHARMACY (17:10)
[2017-01-13] MEDS ORDERED: LIPITOR PO (17:11)
[2017-01-13] MEDS ORDERED: BACLOFEN20 M1 PO (17:11)
[2017-01-13] MEDS ORDERED: BRILINTA90 MG PO (17:11)
[2017-01-13] MEDS ORDERED: LISINOPRIL PO (17:11)
[2017-01-13] MEDS ORDERED: LYRICA PO (17:11)
[2017-01-13] MEDS ORDERED: LOPRESSOR PO (17:11)
[2017-01-13] MEDS ORDERED: TOUJEO SOL300 UNIT/1 SUBQ (17:12)
[2017-01-13] MEDS ORDERED: BUSPAR15 M2 PO (17:12)
[2017-01-13] MEDS ORDERED: FLEXERIL10 MG PO (17:12)
[2017-01-13] MEDS ORDERED: ASPIRIN81 M2 PO (17:12)
[2017-01-13 18:27] LABS: AMPHETAMINE POS (NEG); BARBITURATES NEG (NEG); BENZODIAZEPINES NEG (NEG); COCAINE NEG (NEG); MARIJUANA NEG (NEG); OPIATES POS (NEG); TRICYCLIC ANTIDEPRESSANTS NEG (NEG); U METHADONE NEG (NEG)
[2017-01-13 23:11] LABS: CK TOTAL 51 IU/L (26-140)
[2017-01-14 05:04] LABS: %MB 3.1 % (0.0-4.0); MB 2.3 ng/ml
[2017-01-14 05:14] LABS: CHOLESTEROL 172 mg/dL (0-200); HDL CHOLESTEROL 58 mg/dL (35-95); LDL CHOLESTEROL 79 mg/dL ([, -130]); LDL/HDL RATIO 1 RATIO (0-4); TRIGLYCERIDES 177 mg/dL (10-160)
[2017-01-14 12:46] LABS: BILIRUBIN,TOTAL 2.2 mg/dL (0.2-2.0); BUN/CREATININE RATIO 23.33; CALCIUM SERUM 9.3 mg/dL (8.4-10.2); CREATININE SERUM 1.5 mg/dL (0.6-1.4); GLOM FILT RATE Estimated 44.4 mL/min (>60); PROTEIN TOTAL SERUM 6.9 g/dL (6.0-8.3)
[2017-01-14 12:52] LABS: POTASSIUM 5.4 mmol/L (3.5-5.1)
[2017-01-14 13:11] LABS: ARTERIAL BLD GAS O2 SATURATION 96.1 % (90.0-100.0); ARTERIAL BLOOD GAS CARBOXY HB 0.8 %sat (0.0-9.0); ARTERIAL BLOOD GAS HCO3 5.3 mmol/L; ARTERIAL BLOOD GAS MET HB 1.1 %sat (0.0-2.0)
[2017-01-14 13:13] LABS: ARTERIAL BLOOD GAS ALLEN TEST NORMAL; ARTERIAL BLOOD GAS ART SITE LEFT RADIAL; ARTERIAL BLOOD GAS PCO2 15.8 mmHg (35.0-45.0); ARTERIAL DRAW? YES
[2017-01-14 13:57] LABS: BETA HYDROXYBUTYRATE 11.92 MMOL/L (0.02-0.27)
[2017-01-14 17:50] LABS: CALCIUM SERUM 9.1 mg/dL (8.4-10.2); CREATININE SERUM 1.4 mg/dL (0.6-1.4); GLOM FILT RATE Estimated 48.2 mL/min (>60); POTASSIUM 4.6 mmol/L (3.5-5.1)
[2017-01-14 22:42] LABS: URINE APPEARANCE CLEAR; URINE BILIRUBIN NEG (NEG); URINE BLOOD 1+ (NEG); URINE COLOR YELLOW; URINE GLUCOSE >1000 MG/DL (NEG); URINE KETONE 3+ (NEG); URINE LEUKOCYTE ESTERASE NEG (NEG); URINE NITRATE NEG (NEG); URINE PH 5.5 (5-8); URINE PROTEIN 2+ (NEG); URINE SPECIFIC GRAVITY 1.026 (1.003-1.035)
[2017-01-14 22:44] LABS: URINE BACTERIA AUWI NEG (NEGATIVE); URINE SQUAMOUS EPITHELIAL CELL OCC /[HPF]; UWBCS1 AUWI 0-2 (0-5)
[2017-01-14 22:47] LABS: CULTURE INDICATED? NO
[2017-01-14 23:28] LABS: CALCIUM SERUM 8.9 mg/dL (8.4-10.2); CREATININE SERUM 0.7 mg/dL (0.6-1.4); GLOM FILT RATE Estimated 111.5 mL/min (>60); POTASSIUM 4.3 mmol/L (3.5-5.1)
[2017-01-15 07:17] LABS: BUN/CREATININE RATIO 24.28; CALCIUM SERUM 8.7 mg/dL (8.4-10.2); CREATININE SERUM 0.7 mg/dL (0.6-1.4); GLOM FILT RATE Estimated 111.5 mL/min (>60); MAGNESIUM 1.9 mg/dL (1.6-3.0); POTASSIUM 3.8 mmol/L (3.5-5.1)
[2017-01-16 09:43] LABS: CALCIUM SERUM 8.4 mg/dL (8.4-10.2); CREATININE SERUM 0.5 mg/dL (0.6-1.4); GLOM FILT RATE Estimated 124.5 mL/min (>60); MAGNESIUM 1.8 mg/dL (1.6-3.0)
[2017-01-16] MEDS ORDERED: NOVOLOG FL100 UNIT/1 SUBQ (18:28)
== END 2017-01-16 19:08 | disposition home or self-care (01) | DRG 313 ==
LOC: CED 11:34 → C5C 17:10 → CED 19:39 → C5C 19:39 → CED 01-14 11:53 → C5C 01-14 11:53 → CICCU3 01-14 12:40 → C5C 01-14 12:40
PROVIDERS: Emergency Medicine; Internal Medicine Cardiovascular Disease; Internal Medicine Endocrinology, Diabetes & Metabolism; Nurse Practitioner
PROC: B32TYZZ Computerized Tomography (CT Scan) of Left Pulmonary Artery using Other Contrast (ICD-10-PCS; principal; 2017-01-13)
PROC: B32SYZZ Computerized Tomography (CT Scan) of Right Pulmonary Artery using Other Contrast (ICD-10-PCS; 2017-01-13)
DX: R07.89 Other chest pain (principal); E13.10 Other specified diabetes mellitus with ketoacidosis without coma; I10 Essential (primary) hypertension; M50.30 Other cervical disc degeneration, unspecified cervical region; F17.210 Nicotine dependence, cigarettes, uncomplicated; R07.9 Chest pain, unspecified; Z88.8 Allergy status to other drugs, medicaments and biological substances; G89.4 Chronic pain syndrome; Z91.19 Patient's noncompliance with other medical treatment and regimen; Z71.6 Tobacco abuse counseling; Z86.14 Personal history of Methicillin resistant Staphylococcus aureus infection; R49.22 Hyponasality; E87.6 Hypokalemia; E78.5 Hyperlipidemia, unspecified
CPT/HCPCS: 36415; 36600; 71010; 71275; 78452; 80048; 80053; 80061; 80076; 80307; 81003; 82010; 82150; 82550; 82553; 82803; 82947; 83036; 83690; 83735; 84100; 84443; 84484; 85025; 87040; 93005; 93017; 96360; 99285; A9500; J1650; J1815; J2785; J3475; Q9967